=== PATIENT | male | born 1950 | race Two or more races ===

== ENCOUNTER 2019-02-28 12:30 | Outpatient (CLI) | payer MEDICARE, BC | END 2019-02-28 23:59 | disposition home or self-care (01) | LOC: WOU 12:30 | PROVIDERS: ATTEND Surgery | DX: L90.5 Scar conditions and fibrosis of skin (principal); A67 Pinta [carate]; L57.0 Actinic keratosis; L82.1 Other seborrheic keratosis; B35.4 Tinea corporis | CPT/HCPCS: G0463 ==